=== PATIENT | male | born 1985 | race Caucasian/White ===

== ENCOUNTER 2023-04-13 18:44 | Emergency (ER) | payer OTHER, SELFPAY ==
[2023-04-13] VITALS (13 sets, daily range): BP systolic 136; BP diastolic 85; PULSE 53–68; RESP 20; TEMP 36.6; O2SAT 96–98; BMI 25.1
--- NOTE | 2023-04-13 19:02 | CRLHL7_ITS ---
For Patients: As a result of the Cures Act, medical imaging exams and procedure reports are released immediately into your electronic medical record. You may view this report before your referring provider. If you have questions, please contact your health care provider. INDICATION: Chest pain and shortness of breath. TECHNIQUE: Two views COMPARISON: None. FINDINGS: Patient positioning: The patient is not rotated. Adequate inspiration. Heart and mediastinum: Normal transverse dimension of the cardiac silhouette. No significant abnormalities. Lungs and pleural spaces: Clear lungs and pleural spaces. Bones and soft tissues: No acute findings. IMPRESSION: No acute cardiopulmonary process or significant incidental findings. Dictated by Orion Vance MD @ 04/13/2023 8:10:13 PM (Electronically Signed)
--- NOTE | 2023-04-13 19:08 | ED_ITS ---
HPI - Chest Pain General Date Seen: 04/13/23 Chief Complaint: Chest Pain Stated Complaint: chest pain, hard to breath, hard to swallow Time Seen by Provider: 04/13/23 18:54 Source: patient Mode of arrival: ambulatory Limitations: no limitations History of Present Illness HPI narrative: Patient is a 37-year-old male with no pertinent medical history presenting to emergency department for chest pain and shortness of breath. He states he has been having chest pain for the past 2 weeks initially thought it was heartburn she was taking omeprazole. States yesterday felt like the pain was worse and felt like a pressure sensation in his chest. He went to bed symptoms resolved by morning but blood hour prior to arrival he states the symptoms came back and more intense. Again describes it as a pressure sensation. Denies fevers, chills, abdominal pain, lightheadedness, dizziness, nausea/vomiting, weakness, numbness. States he quit smoking 3 years ago. Does have a brother that had a SC at age 42. Is not aware of any sick contacts. States the pain is midsternal in nature but does not radiate. Feels like it is hard to take a deep breath. No history of cancer or recent surgeries. No history of blood clots. No hemoptysis. Related Data Home Medications Medication Instructions Recorded Confirmed omeprazole magnesium 10 mg oral 10 mg PO QDAY 11/01/22 04/13/23 suspension,delayed release (Prilosec) Previous Rx's Medication Instructions Recorded erythromycin 5 mg/gram (0.5 %) eye 1 applic ophthalmic (eye) QDAY 11/01/22 ointment #3.5 grams Allergies Allergy/AdvReac Type Severity Reaction Status Date / Time lisinopril Allergy Intermediate Verified 04/13/23 18:50 acetaminophen [From Vicodin] Allergy Mild Cough Verified 11/01/22 08:48 hydrocodone [From Vicodin] Allergy Mild Cough Verified 11/01/22 08:48 Review of Systems Status of ROS Reports: 10 or more systems reviewed and unremarkable except as noted in History and below PFSH PFS Social History Smoking Status: Former smoker What tobacco products do you use: cigarettes How often do you have a drink containing alcohol: never How often do you have six or more drinks on one occasion: Never AUDIT-C Alcohol total score: 0 Non-prescribed substance use: denies use Exam Narrative Exam Narrative: Const: Well-nourished, Well-developed, in mild distress Eyes: PERRL, no conjunctival injection, and symmetrical lids HENT: Atraumatic external nose and ears. Moist mucous membranes. Neck: Symmetric, trachea midline, No thyromegaly. CVS: RRR, No murmurs or gallops. Peripheral pulses 2+ and equal in all ex tremities RESP: Unlabored respiratory effort. Clear to auscultation bilaterally. GI: Nontender/Nondistended, No rebound or guarding. MSK:Extremities w/o deformity, Normal Active ROM Skin: Warm, Dry. No rashes or lesions. Neuro: Normal Muscle tone, No focal neurological deficits. Psych: Awake, Alert, & Oriented x3. Appropriate mood and affect. Const Vital Signs, click to edit/add: Vital Signs - 24 hr 04/13/23 18:45 04/13/23 19:16 04/13/23 19:30 Temperature 97.8 F Pulse Rate 65 64 Pulse Rate [Pulse Oximeter] 68 Respiratory Rate 20 Blood Pressure [Right Upper Arm] 136/85 Pulse Oximetry 98 98 96 Oxygen Delivery Method Room Air 04/13/23 19:45 04/13/23 20:00 04/13/23 20:15 Temperature Pulse Rate 62 58 L 59 L Pulse Rate [Pulse Oximeter] Respiratory Rate Blood Pressure [Right Upper Arm] Pulse Oximetry 96 96 97 Oxygen Delivery Method Course Vital Signs Vital signs: Initial Vital Signs Temperature 97.8 F 04/13/23 18:45 Temperature Source Temporal Artery Scan 04/13/23 18:45 Pulse Rate 68 04/13/23 18:45 Respiratory Rate 20 04/13/23 18:45 Blood Pressure 136/85 04/13/23 18:45 Blood Pressure Mean 102 04/13/23 18:45 Pulse Oximetry 98 04/13/23 18:45 Oxygen Delivery Method Room Air 04/13/23 18:45 Vital Signs Temperature 97.8 F 04/13/23 18:45 Pulse Rate 68 04/13/23 18:45 Respiratory Rate 20 04/13/23 18:45 Blood Pressure 136/85 04/13/23 18:45 Pulse Oximetry 98 04/13/23 18:45 Oxygen Delivery Method Room Air 04/13/23 18:45 Temperature 97.8 F 04/13/23 18:45 Pulse Rate 59 L 04/13/23 20:15 Respiratory Rate 20 04/13/23 18:45 Blood Pressure 136/85 04/13/23 18:45 Pulse Oximetry 97 04/13/23 20:15 Oxygen Delivery Method Room Air 04/13/23 18:45 MDM - Chest Pain MDM Narrative Medical decision making narrative: Patient is a 37-year-old male presented emergency department for chest pain. Symptoms have been going on for few weeks ago worse over the past day. Denies any previous heart or lung disease. He is currently PERC negative and the P is unlikely. Symptoms could be viral in nature so code fluid RSV test were ordered. Will evaluate for ACS with EKG and serial troponins. CBC and CMP also ordered. Chest x-ray ordered to look for signs of pneumonia or pneumothorax. Chest x-ray returned showing no acute abnormalities. EKG did not show any conc erning findings. She has 0 troponin stayed less than 0.01. COVID/flu/RSV test were negative. CBC and CMP showed no concerning findings. At this time appears symptoms are most likely viral in nature. His heart score is 2. He will be discharged home informed to follow up his primary care provider if symptoms persist. He is agreeable this plan. Lab Data Labs: Lab Results 04/13/23 04/13/23 Range/Units 19:15 20:43 WBC 8.44 (4.50-11.00) K/uL RBC 4.73 (4.30-5.90) m/uL Hgb 14.3 (13.5-17.5) gm/dL Hct 42.0 (37.0-53.0) % MCV 89 (80-100) fL MCH 30 (26-34) pg MCHC 34 (32-36) gm/dL RDW Coeff of Kyler 12.4 (11.5-15.5) % Plt Count 288 (140-440) K/uL Neut % (Auto) 55.0 (42.0-72.0) % Lymph % (Auto) 34.2 (20-44) % [place] % (Auto) 8.3 (0.0-11.0) % Eos % (Auto) 1.5 (0.0-7.0) % Baso % (Auto) 0.9 (0.0-3.0) % Neut # (Auto) 4.63 (1.7-7.0) K/uL Lymph # (Auto) 2.89 (0.90-2.90) K/uL [place] # (Auto) 0.70 (0.00-0.90) K/UL Eos # (Auto) 0.13 (0.00-0.50) K/uL Baso # (Auto) 0.08 (0.00-0.30) K/uL Abs Immat Gran (auto) 0.01 (0.00-0.30) K/uL Imm/Tot Granulo (auto) 0.1 % Sodium 140 (135-149) mmol/L Potassium 3.4 L (3.6-5.1) mmol/L Chloride 107 (96-114) mmol/L Carbon Dioxide 24 (20-32) mmol/L Anion Gap 9 (7-15) mEq/L BUN 12 (5-24) mg/dL Creatinine 1.0 (0.5-1.5) mg/dL Estimated Creat Clear 108.86 Estimated GFR 98 ml/min Glucose 104 (60-115) mg/dL Calcium 9.1 (8.4-10.6) mg/dL Total Bilirubin 0.4 (0.1-1.5) mg/dL AST 33 (12-35) U/L ALT 18 (4-50) U/L Alkaline Phosphatase 60 (40-150) U/L Troponin I < 0.01 L < 0.01 L (0.01-0.04) ng/mL Total Protein 7.3 (6.0-8.3) g/dL Albumin 4.7 (3.3-5.0) g/dL SARS-CoV-2 (PCR) Negative SARS-CoV-2 (Negative) Influenza Type A (PCR) Negative PCR FLU A (Negative) Influenza Type B (PCR) Negative PCR FLU B (Negative) RSV (PCR) Negative PCR RSV (Negative) Imaging Data Chest x-ray: Radiologist's impression: No acute cardiopulmonary process or significant incidental findings. Dictated by Orion Vance MD @ 04/13/2023 8:10:13 PM ECG Data Attestation: I personally reviewed and interpreted this ECG as follows: Prior ECG tracings: not available for review Interpretation: Normal sinus rhythm with a rate of 62 beats per minute, normal intervals, normal axis, no ST or T-wave abnormalities Discharge Plan Discharge Clinical Impression: Atypical chest pain Patient Disposition: Home, Self-Care Condition: Stable Instructions: Noncardiac Chest Pain (ED) Additional Instructions: Follow-up with the primary care provider symptoms persist. Return to emergency department for new or worsening symptoms. Prescriptions: No Action Prilosec 10 mg susp,delayed release for recon 10 mg PO QDAY erythromycin 5 mg/gram (0.5 %) ointment 1 applic ophthalmic (eye) QDAY Qty: 3.5 0RF Rx Instructions: Apply to R upper eyelid before bed each night for 2 weeks. Follow Up/Referrals: Provider,Not a Local [Primary Care Provider] - Stand Alone Forms: [facility] Info Instructions
[2023-04-13 19:31] LABS: Basophils Absolute Auto 0.08 K/uL (0.00-0.30); Basophils Percent Auto 0.9 % (0.0-3.0); Eosinophils Absolute Auto 0.13 K/uL (0.00-0.50); Eosinophils Percent Auto 1.5 % (0.0-7.0); Hemoglobin* 14.3 gm/dL (13.5-17.5); Immature Granulocytes Abs Auto 0.01 K/uL (0.00-0.30); Immature Granulocytes Pct Auto 0.1 %; Lymphocytes Absolute Auto 2.89 K/uL (0.90-2.90); Lymphocytes Percent Auto 34.2 % (20-44); Mean Corpuscular HGB Conc 34 gm/dL (32-36); Mean Corpuscular Hemoglobin 30 pg (26-34); Mean Corpuscular Volume 89 fL (80-100); Monocytes Percent Auto 8.3 % (0.0-11.0); Neutrophils Absolute Auto 4.63 K/uL (1.7-7.0); Platelet Count* 288 K/uL (140-440); RDW Coefficient of Variation % 12.4 % (11.5-15.5); Red Blood Count 4.73 m/uL (4.30-5.90); White Blood Count* 8.44 K/uL (4.50-11.00)
[2023-04-13 19:39] LABS: Slide Review Reflex No
[2023-04-13 19:53] LABS: Albumin* 4.7 g/dL (3.3-5.0); Chloride* 107 mmol/L (96-114); Potassium* 3.4 mmol/L (3.6-5.1); Sodium* 140 mmol/L (135-149)
[2023-04-13 19:55] LABS: Anion Gap 9 mEq/L (7-15); Bilirubin Total* 0.4 mg/dL (0.1-1.5); Carbon Dioxide* 24 mmol/L (20-32); Est. Creatinine Clearance* 108.86; Estimated Glomerular Filt Rate 98 ml/min
[2023-04-13 19:56] LABS: Alanine Aminotransferase* 18 U/L (4-50); Blood Urea Nitrogen* 12 mg/dL (5-24); Calcium* 9.1 mg/dL (8.4-10.6); Glucose* 104 mg/dL (60-115); Total Protein* 7.3 g/dL (6.0-8.3)
[2023-04-13 20:05] LABS: PCR FLU A Negative PCR FLU A (Negative); PCR FLU B Negative PCR FLU B (Negative); PCR RSV Negative PCR RSV (Negative)
[2023-04-13 20:07] LABS: SARS PCR* Negative SARS-CoV-2 (Negative)
[2023-04-13 20:11] LABS: Aspartate Amino Transferase* 33 U/L (12-35)
[2023-04-13 20:12] LABS: Alkaline Phosphatase* 60 U/L (40-150)
[2023-04-13 20:15] LABS: Troponin I* < 0.01 ng/mL (0.01-0.04)
--- NOTE | 2023-04-13 20:28 | ED.NURSE ---
Pt report given to oncnona RN
[2023-04-13 21:36] LABS: Troponin I* < 0.01 ng/mL (0.01-0.04)
== END 2023-04-13 22:07 | disposition home or self-care (01) ==
PROVIDERS: Emergency Provider Student in an Organized Health Care Education/Training Program
DX: R07.9 Chest pain, unspecified (principal)
CPT/HCPCS: 36415; 71046; 80053; 84484; 85025; 85379; 87631; 93005; 99283; 99284

== ENCOUNTER 2023-07-28 18:46 | Emergency (ER) | payer OTHER, SELFPAY ==
[2023-07-28 18:50] VITALS: BP 114/81; PULSE 58; RESP 18; TEMP 36.8; O2SAT 96; BMI 27.7
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
== END 2023-07-28 19:45 | disposition home or self-care (01) ==
PROVIDERS: Emergency Provider Student in an Organized Health Care Education/Training Program
DX: L02.01 Cutaneous abscess of face (principal)
CPT/HCPCS: 10060; 99282; 99283